=== PATIENT | female | born 1965 | race African-American/Black ===

== ENCOUNTER 2018-06-02 10:38 | Emergency (ER) | payer BC, OTHER ==
[2018-06-02 10:43] VITALS: BP 140/90; PULSE 88; TEMP 98; BMI 36.8
--- NOTE | 2018-06-02 11:16 | PDOC ---
History of Present Illness - General Chief Complaint: Injury Stated Complaint: RT ANKLE INJURY Time Seen by Provider: 06/02/18 11:15 History Source: Patient - History of Present Illness Initial Comments: 06/02/18 11:35 53 year old female reports twisting right ankle c/o pain to the lateral aspect of right ankle and heel. Denies calf pain, numbness or tingling, fevers/chills. Past medical history of hypertension. 06/02/18 11:45 Past History - Past Medical History Allergies/Adverse Reactions: Allergies Allergy/AdvReac Type Severity Reaction Status Date / Time No Known Drug Allergies Allergy Verified 06/02/18 10:41 Home Medications: Ambulatory Orders NK [No Known Home Medication] 06/02/18 Anemia: No Asthma: No Cancer: Yes (HODGKINS DISEASE S/P CHEMO) Cardiac Disorders: No CVA: No COPD: No CHF: No Dementia: No Diabetes: No GI Disorders: No Disorders: No HTN: Yes Hypercholesterolemia: Yes Liver Disease: No Seizures: No Thyroid Disease: No - Surgical History Abdominal Surgery: No Appendectomy: No Cardiac Surgery: No Cholecystectomy: Yes Lung Surgery: No Neurologic Surgery: No Orthopedic Surgery: Yes (L KNEE ARTHROSCOPY, BILAT HIP REPLACEMENT) - Immunization History Immunization Up to Date: Yes - Suicide/Smoking/Psychosocial Hx Smoking History: Never smoked Have you smoked in the past 12 months: No Number of Cigarettes Smoked Daily: 8 Information on smoking cessation initiated: No 'Breaking Loose' booklet given: 09/15/12 Hx Alcohol Use: No Drug/Substance Use Hx: No Substance Use Type: None Hx Substance Use Treatment: No Review of Systems - Review of Systems Able to Perform ROS?: Yes Is the patient limited Nepali proficient: No Constitutional: No: Symptoms Reported, See HPI, Chills, Diaphoresis, Fever, Loss of Appetite, Malaise, Night Sweats, Weakness, Weight Stable, Unintentional Wgt. Loss, Unexplained wgt Loss, Other Musculoskeletal: Yes: Other (ankle pain) *Physical Exam - Vital Signs Last Vital Signs Temp Pulse Resp BP Pulse Ox 98 F 88 16 140/90 100 06/02/18 10:41 06/02/18 10:41 06/02/18 10:41 06/02/18 10:41 06/02/18 10:41 - Physical Exam General Appearance: Yes: Appropriately Dressed Respiratory/Chest: positive: Lungs Clear, Normal Breath Sounds Musculoskeletal: positive: Normal Inspection Extremity: positive: Normal Capillary Refill, Normal Inspection, Other (edema to right ankle, pain with ROM.able to weigth bear). negative: Calf Tenderness, Erythema Integumentary: positive: Normal Color, Dry, Warm Moderate Sedation - Procedure Monitoring Vital Signs: Procedure Monitoring Vital Signs Temperature 98 F 06/02/18 10:41 Pulse Rate 88 06/02/18 10:41 Respiratory Rate 16 06/02/18 10:41 Blood Pressure 140/90 06/02/18 10:41 O2 Sat by Pulse Oximetry (%) 100 06/02/18 10:41 Progress Note - Progress Note Progress Note: A: ankle sprain P: Xray negative ibuprofen outpatient ortho follow up. Medical Decision Making - Medical Decision Making 06/02/18 12:34 xray negative. official read pending *DC/Admit/Observation/Transfer Diagnosis at time of Disposition: Ankle pain, right Qualifiers: Chronicity: acute Qualified Code(s): M25.571 - Pain in right ankle and joints of right foot - Discharge Dispostion Disposition: HOME - Referrals Referrals: Viviane Goyal MD [Primary Care Provider] - Edil Davis DO [Staff Physician] - Call tomorrow - Patient Instructions Printed Discharge Instructions: How to Prevent Falls Additional Instructions: apply ice to the area elevate your ankle take ibuprofen every 6 hours as needed for pain follow up with your doctor as soon as possible. - Post Discharge Activity Forms/Work/School Notes: Back to Work
[2018-06-02] MEDS ORDERED: IBUPROFEN 400 MG TABLET (FP) PO ONE ×3 (11:20→11:31)
== END 2018-06-02 12:40 | disposition home or self-care (01) ==
LOC: JERFT 10:38
DX: S99.811A Other specified injuries of right ankle, initial encounter (principal); X50.1XXA Overexertion from prolonged static or awkward postures, initial encounter; Y93.89 Activity, other specified; Y92.89 Other specified places as the place of occurrence of the external cause; Y99.8 Other external cause status; I10 Essential (primary) hypertension; Z85.71 Personal history of Hodgkin lymphoma
CPT/HCPCS: 73610-TC-RT-FY; 73630-TC-RT-FY; 99281-25